=== PATIENT | female | born 1985 | race Asian ===

== ENCOUNTER 2020-04-09 08:44 | Emergency (ER) | payer MEDICAID ==
[~2020-04-09] VITALS: Ht 162.6 cm; Wt 104.1 kg
[2020-04-09 09:07] LABS: CLARITY,URINE SLIGHTLY CLOUDY (Clear); COLOR,URINE YELLOW (Yellow); GLUCOSE, URINE NEGATIVE (Neg); KETONES,URINE NEGATIVE (Neg); LEUKOCYTE ESTERASE ,URINE NEGATIVE (Neg); NITRITES, URINE NEGATIVE (Neg); OCCULT BLOOD,URINE NEGATIVE (Neg); PROTEIN,URINE 30 mg/dl (Neg)
[2020-04-09 09:08] LABS: URINE HCG NEGATIVE (NEG)
[2020-04-09 09:10] LABS: UA COLLECTION TYPE CLN CATCH MIDSTREAM
[2020-04-09] MEDS ORDERED: ketorolac tromethamine 15mg/ml inj. IM ONE (09:20)
--- NOTE | 2020-04-09 09:28 | NUR ---
chief technician x ray at bedside.
[2020-04-09 09:30] LABS: MUCUS STRANDS MANY /LPF (Neg); SQUAMOUS EPITHELIAL CELL,UR MANY /LPF (FEW)
[2020-04-09 09:31] LABS: BACTERIA,URINE 1+ /HPF (Neg)
[2020-04-09 09:32] LABS: CAL OXALATE CRYSTALS 2+ /HPF (NEGATIVE); RBC,URINE 0-2 /HPF (0-2); TRANSITIONAL EPI CELLS,URINE FEW /HPF
--- NOTE | 2020-04-09 09:35 | NUR ---
US TECH AT BEDSIDE.
[2020-04-09 09:49] LABS: BASOPHILS # (AUTO) 0.1 X10'3 (0-0.2); BASOPHILS % (AUTO) 0.5 % (0-1); EOSINOPHILS # (AUTO) 0.1 X10'3 (0-0.9); EOSINOPHILS % (AUTO) 0.5 % (0-6); HEMATOCRIT 43.7 % (35.0-45.0); HEMOGLOBIN 13.9 g/dl (12.0-16.0); LYMPHOCYTES # (AUTO) 2.2 X10'3 (1.1-4.8); LYMPHOCYTES % (AUTO) 18.9 % (21-51); MEAN CORPUSCULAR HEMOGLOBIN 22.6 PG (27.0-31.0); MEAN CORPUSCULAR HGB CONC 31.7 g/dL (33.0-36.5); MEAN CORPUSCULAR VOLUME 71.4 FL (78-98); MEAN PLATELET VOLUME 7.8 FL (7.4-10.4); MONOCYTES # (AUTO) 0.6 X10'3 (0-0.9); MONOCYTES % (AUTO) 4.8 % (2-12); NEUTROPHILS # (AUTO) 8.6 X10'3 (1.8-7.7); NEUTROPHILS % (AUTO) 75.3 % (42-75); PLATELET COUNT 315 X10'3 (140-440); RED BLOOD COUNT 6.13 X10'6 (4.20-5.60); RED CELL DISTRIBUTION WIDTH 15.9 % (11.5-14.5); WHITE BLOOD COUNT 11.4 X10'3 (4.5-11.0)
[2020-04-09 10:03] LABS: ALANINE AMINOTRANSFERASE 40 U/L (12-78); ALBUMIN 3.9 G/DL (3.4-5.0); ALBUMIN/GLOBULIN RATIO 0.9 (1.1-1.5); ALKALINE PHOSPHATASE 56 IU/L (46-116); ANION GAP 7 (8-16); ASPARTATE AMINO TRANSFERASE 18 U/L (10-37); BILIRUBIN,TOTAL 0.3 MG/DL (0.1-1.0); BLOOD UREA NITROGEN 12 MG/DL (7-18); BUN/CREATININE RATIO 12.4 (6.6-38.0); CALCIUM 8.9 MG/DL (8.5-10.1); CHLORIDE 105 MMOL/L (99-107); CREATININE 0.97 MG/DL (0.40-0.90); GLUCOSE 212 MG/DL (70-104); POTASSIUM 4.1 MMOL/L (3.5-5.1); SODIUM 140 MMOL/L (135-145); TOTAL CARBON DIOXIDE 27.6 MMOL/L (24-32); TOTAL PROTEIN 8.1 G/DL (6.4-8.2); eGFR 66 ML/MIN
[2020-04-09] MEDS ORDERED: CEPH-572 PO (10:29)
[2020-04-09] MEDS ORDERED: HYDROcodone/acetaminophen 5mg/325mg tablet PO ONE (12:00)
[2020-04-09] MEDS ORDERED: normal saline 1000ml 1,000 ML IV ONE (13:10)
[2020-04-09] MEDS ORDERED: morphine 2 MG/ML inj. syringe IV ONE (13:10)
[2020-04-09] MEDS ORDERED: iohexol 300mg/ml 100ml inj. ONE (13:48)
--- NOTE | 2020-04-09 14:29 | NUR ---
Back to ER room 8 via [facility], from [place], stable condition.
[2020-04-09] MEDS ORDERED: HYDR-4353 PO (14:52)
[2020-04-09 15:02] VITALS: BP 165/98
== END 2020-04-09 15:04 | disposition home or self-care (01) ==
LOC: ER 08:44
DX: N83.202 Unspecified ovarian cyst, left side (principal); F17.200 Nicotine dependence, unspecified, uncomplicated; F12.90 Cannabis use, unspecified, uncomplicated; F14.90 Cocaine use, unspecified, uncomplicated; Z72.89 Other problems related to lifestyle; Z79.899 Other long term (current) drug therapy
CPT/HCPCS: 36415; 74177; 76830; 76856; 80053; 81001; 81025; 82378; 85025; 86304; 93976; 96361; 96372; 96374; 99285; J1885; J2270; J7030; Q9967

== ENCOUNTER 2020-04-10 14:07 | Emergency (ER) | payer MEDICAID ==
[~2020-04-10] VITALS: Ht 160 cm; Wt 104.1 kg
[~2020-04-10 14:07] MED LIST: HYDR-4353 PO
[2020-04-10 14:56] VITALS: BP 159/99
[2020-04-11] MEDS ORDERED: HYDR-4353 PO (13:59)
== END 2020-04-10 14:58 | disposition home or self-care (01) ==
LOC: ER 14:07
DX: N83.202 Unspecified ovarian cyst, left side (principal); I10 Essential (primary) hypertension; F12.10 Cannabis abuse, uncomplicated; F11.10 Opioid abuse, uncomplicated
CPT/HCPCS: 99281

== ENCOUNTER 2020-04-11 13:31 | Emergency (ER) | payer MEDICAID ==
[~2020-04-11] VITALS: Ht 160 cm; Wt 102.1 kg
[2020-04-11 13:48] VITALS: BP 142/100
[2020-04-11] MEDS ORDERED: HYDR-4353 PO (13:59)
--- NOTE | 2020-04-11 14:11 | NUR ---
Pt was evaluated and deemed medically stable by the provider in Triage, not fully assessed by the Nurse.
== END 2020-04-11 14:11 | disposition home or self-care (01) ==
LOC: ER 13:32
DX: R10.9 Unspecified abdominal pain (principal); I10 Essential (primary) hypertension; F12.10 Cannabis abuse, uncomplicated; F14.10 Cocaine abuse, uncomplicated; Z79.899 Other long term (current) drug therapy
CPT/HCPCS: 99283